=== PATIENT | male | born 1960 | race Caucasian/White ===

== ENCOUNTER 2023-04-24 07:03 | Day surgery (SDC) | payer OTHER ==
[2023-04-21 10:59] LABS: BASOPHILS % (AUTO) 0.8 % (0.0-5.0); EOSINOPHILS % (AUTO) 3.3 % (0.0-8.0); HEMATOCRIT 26.4 % (42-54); LYMPHOCYTES % (AUTO) 9.2 % (21.0-51.0); MEAN CORPUSCULAR HEMOGLOBIN 30.4 pg (27.0-33.0); MEAN CORPUSCULAR HGB CONC 31.8 g/dL (32.0-36.0); MEAN CORPUSCULAR VOLUME 95.7 fL (79-99); MONOCYTES % (AUTO) 7.6 % (3.0-13.0); NEUTROPHILS % (AUTO) 78.4 % (40.0-77.0); PLATELET COUNT (AUTO) 281 K/uL (130-400); RED BLOOD CELL COUNT(AUTO) 2.76 MIL/uL (4.50-6.20); RED CELL DISTRIBUTION WIDTH 13.5 % (11.0-15.5); WHITE BLOOD COUNT (AUTO) 8.6 K/uL (4.8-10.8)
[2023-04-21 11:37] LABS: INR 1.04 (0.85-1.15); PROTHROMBIN TIME 11.3 SEC (9.6-11.6)
[2023-04-21 11:39] LABS: PARTIAL THROMBOPLASTIN TIME 30.8 SEC (26.3-35.5)
[2023-04-21 13:23] VITALS: BP 184/93
[~2023-04-24] VITALS: Ht 172.7 cm; Wt 53.3 kg
[2023-04-24] VITALS (16 sets, daily range): BP systolic 127–162; BP diastolic 62–87
[~2023-04-24 07:03] MED LIST: CARV12.511 PO; CEFAZOLIN SODIUM 2 GM VIAL IVPB SCH; CINA30TA5 PO; DOCU100C33 PO; FOLI0.8T22 PO; GABA-529 PO; LACT10SO5 PO; MEGE40TA5 PO
[2023-04-24] MEDS ORDERED: 0.9% NACL 500ML IV.SOLN 500 ML IV ONE (09:47)
[2023-04-24 09:51] LABS: POTASSIUM 4.5 mmol/L (3.5-5.1)
[2023-04-24 10:36] LABS: CREATININE 12.2 mg/dL (0.5-1.5)
[2023-04-24] MEDS ORDERED: SUCCINYLCHOLINE 200MG/10ML SYR ONE (10:53)
[2023-04-24] MEDS ORDERED: ONDANSETRON 4MG INJ ONE ×2 (10:53→14:59)
[2023-04-24] MEDS ORDERED: LIDOCAINE PF 100MG/5ML (2%) SYRINGE 5ML ONE (10:53)
[2023-04-24] MEDS ORDERED: PROPOFOL 10 MG/ML 20ML VIAL IV ONE (10:53)
[2023-04-24] MEDS ORDERED: DEXAMETHASONE SOD PHOSPHATE 10MG/ML 1ML VIAL ONE (10:53)
[2023-04-24] MEDS ORDERED: NEOSTIGMINE 5MG/5ML SYR IV ONE (10:53)
[2023-04-24] MEDS ORDERED: GLYCOPYRROLATE 1 MG/5 ML SYRINGE ONE (10:53)
[2023-04-24] MEDS ORDERED: MIDAZOLAM HCL 1 MG/ML 2ML VIAL ONE (10:53)
[2023-04-24] MEDS ORDERED: ROCURONIUM 10MG/1ML SYR 10 MG/ML ML ONE (10:54)
[2023-04-24] MEDS ORDERED: FENTANYL CITRATE PF 50 MCG/1 ML 2ML VIAL ONE (10:54)
[2023-04-24] MEDS ORDERED: KETAMINE 50MG/ML SYRINGE 50 MG/ML DISP.SYRIN ONE (12:45)
[2023-04-24] MEDS ORDERED: CEFAZOLIN SODIUM 2 GM VIAL IVPB ONE (12:49)
[2023-04-24] MEDS ORDERED: PHENYLEPHRINE HCL 10 MG/ML 1ML VIAL IV ONE (13:03)
[2023-04-24] MEDS ORDERED: BUPIVACAINE/PF 0.25% 30ML VIAL IJ ONE (13:33)
[2023-04-24] MEDS ORDERED: BUPIVACAINE/EPI/PF 0.25% 30ML VIAL IJ ONE (14:00)
== END 2023-04-24 16:05 | disposition home or self-care (01) ==
LOC: DAH 07:03
PROVIDERS: ATTEND Student in an Organized Health Care Education/Training Program
DX: K40.90 Unilateral inguinal hernia, without obstruction or gangrene, not specified as recurrent (principal); Z20.822 Contact with and (suspected) exposure to COVID-19; E11.22 Type 2 diabetes mellitus with diabetic chronic kidney disease; I12.0 Hypertensive chronic kidney disease with stage 5 chronic kidney disease or end stage renal disease; N18.6 End stage renal disease; D64.9 Anemia, unspecified; J90 Pleural effusion, not elsewhere classified; Z79.899 Other long term (current) drug therapy; Z79.01 Long term (current) use of anticoagulants; Z99.2 Dependence on renal dialysis
CPT/HCPCS: 85025; 85610; 85730; 87426; 36415 ×2; 71045; 93005; 49505; 80048; 82948; A6260; A4452; C1781; J7040; J3010; J0330; J3490 ×4; J1100; J2710; J2001; J2704; J2405 ×2; J2370; J0690 ×2; A4215; A4223; A4222; A4221; A4663; A4600; 45378; J2250